=== PATIENT | male | born 1970 | race Caucasian/White ===

== ENCOUNTER 2021-02-09 01:35 | Emergency (ER) | payer SELFPAY ==
[2021-02-09 01:55] VITALS: BP 149/97; PULSE 84; TEMP 97.9; BMI 36.8
[2021-02-09] MEDS ORDERED: KETOROLAC TROMETHAMINE 15 MG/ML VIAL IM ONE (02:46)
[2021-02-09] MEDS ORDERED: KETOROLAC TROMETHAMINE 15 MG/ML VIAL ONE (02:51)
== END 2021-02-09 03:02 | disposition home or self-care (01) ==
LOC: EDBD → JER 01:35
PROC: 3E0233Z Introduction of Anti-inflammatory into Muscle, Percutaneous Approach (ICD-10-PCS; principal; 2021-02-09)
DX: H92.02 Otalgia, left ear (principal)
CPT/HCPCS: 99284-25